=== PATIENT | female | born 1990 | race Caucasian/White ===

== ENCOUNTER 2019-04-26 07:02 | Emergency (ER) | payer OTHER ==
[2019-04-26 07:18] VITALS: BP 124/68
--- NOTE | 2019-04-26 07:39 | UC ---
Complaint Female HPI - HPI Summary HPI Summary: 28 yo female has had > one week hx of right sided back pain and increased frequency of urination no dysuria no f/v no n/v/d no abd or pelvic pain no vaginal d/c or itch yesterday saw flecks of blood in her urine - History Of Current Complaint Chief Complaint: UCGU Stated Complaint: URINARY ISSUE PAIN ON SIDE Time Seen by Provider: 04/26/19 07:09 Hx Obtained From: Patient Hx Last Menstrual Period: 04/21/19 Onset/Duration: Gradual Onset, Lasting Days Timing: Constant Severity Initially: Mild Severity Currently: Mild Pain Intensity: 4 Pain Scale Used: 0-10 Numeric Character: Not Applicable Aggravating Factor(s): Nothing Alleviating Factor(s): Nothing Associated Signs And Symptoms: Positive: Back Pain. Negative: Fever, Vaginal Bleeding/Discharge, Vaginal Discharge, Nausea, Vomiting(# Of Episodes =), Genital Swelling, Genital Blisters, Retained Foregin Body (Specify) Female Torso: 1 - tender - Allergies/Home Medications Allergies/Adverse Reactions: Allergies Allergy/AdvReac Type Severity Reaction Status Date / Time prednisone Allergy sleepiness Verified 04/26/19 07:19 Home Medications: Home Medications NK [No Home Medications Reported] 04/26/19 [History Confirmed 04/26/19] PMH/Surg Hx/FS Hx/Imm Hx Previously Healthy: Yes - Surgical History Surgical History: Yes Surgery Procedure, Year, and Place: appy - Family History Known Family History: Negative: Cardiac Disease, Hypertension, Diabetes, Renal Disease - Social History Alcohol Use: Occasionally Substance Use Type: None Smoking Status (MU): Never Smoked Tobacco Review of Systems All Other Systems Reviewed And Are Negative: Yes Constitutional: Positive: Negative Skin: Positive: Negative Eyes: Positive: Negative ENT: Positive: Negative Respiratory: Positive: Negative Cardiovascular: Positive: Negative Gastrointestinal: Positive: Negative Genitourinary: Positive: Hematuria - ??, Frequency. Negative: Dysuria, Urgency Motor: Positive: Negative Neurovascular: Positive: Negative Musculoskeletal: Positive: Negative Neurological: Positive: Negative Psychological: Positive: Negative Physical Exam Triage Information Reviewed: Yes Appearance: Well-Appearing, No Pain Distress, Well-Nourished Vital Signs: Initial Vital Signs Temp 97.5 F 04/26/19 07:11 Pulse 81 04/26/19 07:11 Resp 15 04/26/19 07:11 BP 124/68 04/26/19 07:11 Pulse Ox 100 04/26/19 07:11 Vital Signs Reviewed: Yes Eyes: Positive: Conjunctiva Clear ENT: Positive: Hearing grossly normal, Uvula midline. Negative: Nasal congestion, Nasal drainage, Trismus, Muffled voice, Hoarse voice Dental Exam: Normal Neck exam: Normal Neck: Positive: Supple, Nontender, No Lymphadenopathy Respiratory: Positive: Lungs clear, Normal breath sounds, No respiratory distress, No accessory muscle use Cardiovascular: Positive: RRR, No Murmur Abdomen Description: Positive: Nontender, No Organomegaly, Soft, CVA Tenderness (R) - mild Bowel Sounds: Positive: Present Musculoskeletal: Positive: ROM Intact, No Edema Neurological: Positive: Alert Psychological Exam: Normal Skin Exam: Normal Diagnostics - Laboratory Lab Results: UA tr leuks tr rbc Complaint Female Dx - Course Course Of Treatment: due to possible hematuria noted yesterday and right CVA tenderness I suggested at CT of abd and pelvis to check for a kidney stone. She wishes to wait for culture results. Aware of need to recheck for new or worsening symptoms. - Differential Dx/Diagnosis Provider Diagnosis: Increased frequency of urination, Right-sided back pain Discharge ED - Sign-Out/Discharge Documenting (check all that apply): Patient Departure All imaging exams completed and their final reports reviewed: No Studies - Discharge Plan Condition: Stable Disposition: HOME Patient Education Materials: Renal Colic (ED) Referrals: Tete Soliman MD [Primary Care Provider] - 2 Days Additional Instructions: the specks you saw in your urine may have been blood you may have a tiny kidney stone TO ER FOR : increased pain fever vomiting a urine culture is pending although your urine did not look suspicious a UTI - Billing Disposition and Condition Condition: STABLE Disposition: Home
[2019-04-27 12:47] LABS: Chlamydia trachomatis NAA Negative (Negative); Neisseria gonorrhoeae (GC) NAA Negative (Negative)
== END 2019-04-26 07:54 | disposition home or self-care (01) ==
LOC: UCEAST 07:02
DX: R35.0 Frequency of micturition (principal); M54.89 Other dorsalgia
CPT/HCPCS: 81003; 87086; 87491; 87591; 99211; G0463